=== PATIENT | male | born 1980 | race Caucasian/White ===

== ENCOUNTER 2016-10-18 15:48 | Emergency (ER) | payer BC ==
[~2016-10-18] VITALS: Ht 172.7 cm; Wt 98.8 kg
[~2016-10-18 15:48] MED LIST: ALEVE220 MG PO; CICLOPIROX45 GM TP; IBUPROFEN600 MG PO; LEVAQUIN500 MG PO; LOTRIMIN AF24 GM TP; NOHOMEMEDS; ULTRAM50 MG PO
[2016-10-18] MEDS ORDERED: KEFLEX500 MG PO (18:33)
[2016-10-18 20:16] VITALS: BP 120/80
== END 2016-10-18 20:18 | disposition home or self-care (01) ==
LOC: EME 15:48
DX: L03.115 Cellulitis of right lower limb (principal)
CPT/HCPCS: 73630; 99281; 99283

== ENCOUNTER 2018-05-07 01:53 | Emergency (ER) | payer BC ==
[~2018-05-07] VITALS: Ht 172.7 cm; Wt 91.2 kg
[~2018-05-07 01:53] MED LIST changes: +KEFLEX500 MG PO; +LORTAB 5-325 M1 EACH PO; +LYRICA75 MG PO; +NAPROXEN500 MG PO; +PERCOCET 5/31 TABLET PO
[2018-05-07 02:58] LABS: BASOPHIL (%) 0.6 % (0-1); EOSINOPHIL (%) 1.5 % (0-5); EOSINOPHIL COUNT 0.1 K/uL (0-0.3); HEMATOCRIT 41.9 % (38.0-50.0); HEMOGLOBIN 15.3 G/DL (12.5-16.6); IMMATURE GRANULOCYTE (%) 0.3 % (0.0-0.7); LYMPHOCYTE (%) 43.5 % (15-42); MCH 33.2 PG (29.0-34.0); MCHC 36.5 G/DL (30.0-36.0); MCV 90.9 FL (86-99); MONOCYTE (%) 9.5 % (3-12); MONOCYTE COUNT 0.7 K/uL (0-0.8); NEUTROPHIL (%) 44.6 % (45-76); NEUTROPHIL COUNT 3.1 K/uL (1.8-6.4); PLATELET COUNT 174 K/uL (156-360); RBC DIS.WIDTH-CV 11.6 % (11.8-14.6); RBC DIS.WIDTH-SD 38.4 % (39-53); RED BLOOD COUNT 4.61 M/uL (4.00-5.50); WHITE BLOOD COUNT 6.9 K/uL (4.1-10.2)
[2018-05-07 03:28] LABS: CHLORIDE 102 MEQ/L (99-109); GFR ESTIMATE (CALCULATED) > 59 mL/min/ (58.99-99999); GLUCOSE 94 mg/dL (70-99); POTASSIUM 3.6 MEQ/L (3.7-5.4); SODIUM 137 MEQ/L (136-147); UREA NITROGEN (BUN) 15 mg/dL (9-23)
[2018-05-07] MEDS ORDERED: IBUPROFEN600 MG PO (04:03)
[2018-05-07 04:19] VITALS: BP 103/56
[2018-05-07 04:20] LABS: ERTH.SED.RATE 20 MM/HR (0-15)
== END 2018-05-07 04:19 | disposition home or self-care (01) ==
LOC: EME 01:53
PROVIDERS: Emergency Medicine
DX: M79.671 Pain in right foot (principal); M06.9 Rheumatoid arthritis, unspecified; F17.200 Nicotine dependence, unspecified, uncomplicated; Z98.890 Other specified postprocedural states
CPT/HCPCS: 73630; 80048; 85025; 85651; 86140; 99281; 99284